=== PATIENT | male | born 2000 | race African-American/Black ===

== ENCOUNTER 2023-03-27 03:01 | Emergency (ER) | payer OTHER ==
[2023-03-27 03:08] VITALS: TEMP 99.8; BMI 25.1
[2023-03-27] MEDS ORDERED: SODIUM CHLORIDE 1,000 ML IV STA (03:43)
[2023-03-27] MEDS ORDERED: FAMOTIDINE 20 MG/50 ML IVPB 20 MG/50 ML MG IVPB ONE (03:43)
[2023-03-27] MEDS ORDERED: ACETAMINOPHEN 1000 MG/100 ML BAG IVPB ONE (03:43)
[2023-03-27] MEDS ORDERED: FAMOTIDINE 10 MG/ML VIAL IVPB ONE (03:48)
[2023-03-27] MEDS ORDERED: ALBUTEROL SO4 2.5/IPRATROPIUM 0.5 INH SOL 3 ML VIAL.NEB. NEB ONE (04:10)
[2023-03-27 04:29] LABS: BASO % 0.3 % (0-2.0); EOS % 2.4 % (0-4.5); HEMOGLOBIN 15.4 GM/dL (11.7-16.9); LYMPH % 5.5 % (8-40); MCHC 34.2 g/dl (32.0-35.9); MEAN CELL VOLUME 87.8 fl (80-96); MEAN PLT VOLUME 8.1 fl (7.5-11.1); MONO % 9.1 % (3.8-10.2); NEUT % 82.7 % (42.8-82.8); PLATELET COUNT 217 10^3/uL (134-434); RBC 5.12 M/mm3 (4.00-5.60); RDW 12.5 % (11.9-15.9); WHITE BLOOD COUNT 8.6 K/mm3 (4.0-10.0)
[2023-03-27 04:47] LABS: CALCIUM 9.1 mg/dL (8.5-10.1)
[2023-03-27 04:48] LABS: ALBUMIN 4.3 g/dl (3.4-5.0); BLOOD UREA NITROGEN 13.4 mg/dL (7-18)
[2023-03-27 04:51] LABS: CREATININE 1.3 mg/dL (0.55-1.3)
[2023-03-27 04:52] LABS: BILIRUBIN,TOTAL 0.5 mg/dL (0.2-1); TOT PROT 7.8 g/dl (6.4-8.2)
[2023-03-27 07:24] VITALS: BP 130/70; PULSE 78; RESP 16
== END 2023-03-27 07:24 | disposition home or self-care (01) ==
LOC: JER 03:01
PROC: 3E033GC Introduction of Other Therapeutic Substance into Peripheral Vein, Percutaneous Approach (ICD-10-PCS; principal; 2023-03-27)
PROC: 3E033NZ Introduction of Analgesics, Hypnotics, Sedatives into Peripheral Vein, Percutaneous Approach (ICD-10-PCS; 2023-03-27)
PROC: 3E0F7GC Introduction of Other Therapeutic Substance into Respiratory Tract, Via Natural or Artificial Opening (ICD-10-PCS; 2023-03-27)
DX: R06.2 Wheezing (principal); R50.9 Fever, unspecified; M79.10 Myalgia, unspecified site; R11.10 Vomiting, unspecified; R05.9 Cough, unspecified; R10.13 Epigastric pain; Z20.822 Contact with and (suspected) exposure to COVID-19
CPT/HCPCS: 0241U-QW; 36415; 80053; 83690; 85025; 99284-25